=== PATIENT | male | born 1955 | race Caucasian/White ===

== ENCOUNTER 2018-09-03 20:51 | Emergency (ER) | payer SELFPAY ==
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
[2018-09-04] MEDS ORDERED: MORPHINE SULFATE INJ 10 MG/ML VIAL IV ONE (00:55)
[2018-09-04] MEDS ORDERED: MORPHINE SULFATE INJ 10 MG/ML VIAL ONE (00:56)
[2018-09-04 01:05] VITALS: O2SAT 96
[2018-09-04 01:41] VITALS: BP 121/89; TEMP 98.7
== END 2018-09-04 01:25 | disposition home or self-care (01) ==
LOC: ER 20:51
DX: S22.42XA Multiple fractures of ribs, left side, initial encounter for closed fracture (principal); S42.012A Anterior displaced fracture of sternal end of left clavicle, initial encounter for closed fracture; V86.69XA Passenger of other special all-terrain or other off-road motor vehicle injured in nontraffic accident, initial encounter; Y92.9 Unspecified place or not applicable
CPT/HCPCS: 36415; 70460; 70491; 71045; 71260; 74177; 80053; 80320; 82150; 82550; 82553; 84484; 85025; 85610; 85730; 93005; J2270